=== PATIENT | male | born 1940 | race Caucasian/White ===

== ENCOUNTER 2018-05-03 11:26 | Emergency (ER) | payer MEDICARE, SELFPAY ==
[2018-05-03 11:35] VITALS: BP 157/60; PULSE 60; RESP 20; TEMP 37.1; O2SAT 95
--- NOTE | 2018-05-03 11:52 | ED_ITS ---
HPI - Extremity Injury (Lower) General Chief Complaint: Extremity Injury, Lower Stated Complaint: SPRAINED LEFT ANKLE Time Seen by Provider: 05/03/18 11:51 Source: patient Mode of arrival: ambulatory Limitations: no limitations History of Present Illness HPI Narrative: 78-year-old male here for evaluation of left ankle and foot injury. Patient states that he rolled his ankle approximately 7 days ago. Has had pain and swelling since then. Has been able to walk on it since then. No prior injury. Has not tried anything for prior to arrival. Has had some discoloration Review of Systems Constitutional Denies fever(s) Cardiovascular Denies chest pain and Denies dyspnea Respiratory Denies dyspnea Gastrointestinal Gastrointestinal: Denies abdominal pain Musculoskeletal Comments: Left ankle pain and swelling Integumentary/Breasts Comments: Discoloration around the outside of the left ankle Neurologic Comments: Some tingling to the left ankle PFSH Medical History Healthy adult (Acute) Surgical History No pertinent past surgical history (Acute) Social History Smoking Status: Never smoker Exam Initial Vital Signs Initial Vital Signs: Vital Signs Temperature 98.7 F 05/03/18 11:35 Pulse Rate 60 05/03/18 11:35 Respiratory Rate 20 05/03/18 11:35 Blood Pressure 157/60 H 05/03/18 11:35 Pulse Oximetry 95 05/03/18 11:35 Resp Effort & Inspection: normal respiratory effort Cardio Pulses: dorsalis pedis present on the left Skin Lesions: no lesions Other: Does have some bruising on the inferior aspect left ankle along the lateral aspect of the left foot Neuro Other: Sensation intact to light touch left lower extremity Extrem Other: No proximal fibula tenderness Some tenderness to the posterior aspect of the lateral malleolus and also the medial malleolus. Some tenderness to palpation along the midfoot. Psych Appearance: grossly normal and well kempt Course Orders Ordered: ED Orders 05/03/18 11:59 XR ankle LT min 3V Stat XR foot LT min 3V Stat Vital Signs - 8 hr 05/03/18 11:35 05/03/18 12:26 Temperature 98.7 F Pulse Rate 60 74 Respiratory Rate 20 18 Blood Pressure 157/60 H Blood Pressure [Right Arm] 138/51 H Pulse Oximetry 95 96 MDM - Extremity Injury (Lower) Imaging Data X-ray foot: Radiologist's impression: [address] [id number] XRay Report Signed Patient: JAVON ERICKSON EMR#: [id number] : 1940Acct:[id number] Age/Sex: 78 / MDate of Service: 05/03/18 Loc: ED Accession Number: [id number] Procedure: XR foot LT min 3V Ordering Provider: Arsen Teixeira D.O. PROCEDURE: XR FOOT LT MIN 3V INDICATIONS: Left foot and ankle pain after fall TECHNIQUE: 3 views of the foot were acquired. COMPARISON: None. FINDINGS: Bones: No fractures or dislocations. No suspicious bony lesions. Well-defined plantar and dorsal calcaneal enthesophytes are seen. Osteoarthritic changes are noted as well focal joints. Mild hallux valgus is seen. Soft tissues: No tibiotalar joint effusion. Achilles tendon appears normal. IMPRESSION: No acute left foot fracture or dislocation. Mild forefoot joint osteoarthritis. Small plantar and dorsal calcaneal enthesophytes. Dictated by: Morgan Harris M.D. on 05/03/2018 at 12:23 Approved by: Morgan Harris M.D. on 05/03/2018 at 12:24 X-ray ankle: Radiologist's impression: PROCEDURE: XR ANKLE LT MIN 3V INDICATIONS: L foot and ankle pain after fall TECHNIQUE: 3 views of the ankle were acquired. COMPARISON: None. FINDINGS: Bones: No fractures or dislocations. Ankle mortise is normally aligned. No suspicious bony lesions. Well-defined plantar and dorsal calcaneal enthesophytes are seen. Mild tibiotalar and subtalar joint space narrowing is seen. Soft tissues: No tibiotalar joint effusion. Achilles tendon appears normal. Soft tissue swelling around ankle joint is noted. IMPRESSION: Mild ankle soft tissue swelling. No fracture or dislocation. Well- defined plantar and dorsal calcaneus enthesophyte. Mild ankle joint osteoarthritis. Dictated by: Morgan Harris M.D. on 05/03/2018 at 12:24 Approved by: Morgan Harris M.D. on 05/03/2018 at 12:26 [facility] Narrative Medical decision making narrative: Neurovascularly intact. Injury occurred 1 week ago and he has been walking on it since then. X-rays are negative for fractures. Suspect a sprained ankle. He was given care instructions and return precautions. He expressed understanding and agreement with plan. Discharge Plan Departure Patient Disposition: Home Clinical Impression: Ankle sprain and strain Instructions: DI for Ankle Sprain, How To Perform RICE (Rest, Ice, Compress, Elevate) Activity Restrictions/Additional Instructions: Your only limited in your activity but the discomfort that you are having. Keep your leg elevated and iced as much as possible. He can take anti- inflammatories such as Motrin or Naprosyn as needed. Follow up with your primary care doctor. Return emergency department for any new symptoms
--- NOTE | 2018-05-03 11:59 | DI.RAD.S_ITS ---
PROCEDURE: XR FOOT LT MIN 3V INDICATIONS: Left foot and ankle pain after fall TECHNIQUE: 3 views of the foot were acquired. COMPARISON: None. FINDINGS: Bones: No fractures or dislocations. No suspicious bony lesions. Well-defined plantar and dorsal calcaneal enthesophytes are seen. Osteoarthritic changes are noted as well focal joints. Mild hallux valgus is seen. Soft tissues: No tibiotalar joint effusion. Achilles tendon appears normal. IMPRESSION: No acute left foot fracture or dislocation. Mild forefoot joint osteoarthritis. Small plantar and dorsal calcaneal enthesophytes. Dictated by: Morgan Harris M.D. on 05/03/2018 at 12:23 Approved by: Morgan Harris M.D. on 05/03/2018 at 12:24
--- NOTE | 2018-05-03 11:59 | DI.RAD.S_ITS ---
PROCEDURE: XR ANKLE LT MIN 3V INDICATIONS: L foot and ankle pain after fall TECHNIQUE: 3 views of the ankle were acquired. COMPARISON: None. FINDINGS: Bones: No fractures or dislocations. Ankle mortise is normally aligned. No suspicious bony lesions. Well-defined plantar and dorsal calcaneal enthesophytes are seen. Mild tibiotalar and subtalar joint space narrowing is seen. Soft tissues: No tibiotalar joint effusion. Achilles tendon appears normal. Soft tissue swelling around ankle joint is noted. IMPRESSION: Mild ankle soft tissue swelling. No fracture or dislocation. Well-defined plantar and dorsal calcaneus enthesophyte. Mild ankle joint osteoarthritis. Dictated by: Morgan Harris M.D. on 05/03/2018 at 12:24 Approved by: Morgan Harris M.D. on 05/03/2018 at 12:26
[2018-05-03 12:26] VITALS: BP 138/51; PULSE 74; RESP 18; O2SAT 96
[2018-05-03 13:25] VITALS: BP 116/62; PULSE 72; RESP 14; O2SAT 96
== END 2018-05-03 13:27 | disposition home or self-care (01) ==
PROVIDERS: Emergency Provider Emergency Medicine
DX: S93.402A Sprain of unspecified ligament of left ankle, initial encounter (principal); W18.40XA Slipping, tripping and stumbling without falling, unspecified, initial encounter
CPT/HCPCS: 73610; 73630; 99282; 99283